=== PATIENT | male | born 2000 | race Caucasian/White ===

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

== ENCOUNTER 2019-03-14 19:43 | Emergency (ER) | payer BC ==
[~2019-03-14] VITALS: Ht 182.9 cm; Wt 118.0 kg
[~2019-03-14 19:43] MED LIST changes: +ANTIVERT PO
[2019-03-14 20:20] LABS: HEMATOCRIT 47.4 % (39.0-50.0); HEMOGLOBIN 16.6 g/dl (14.0-18.0); IMMATURE GRANULOCYTES 0.3 % (0.0-5.0); MEAN CELL VOLUME 83.5 fL CALC (80.0-100.0); MEAN CORPUSCULAR HGB 29.2 pG CALC (26.0-32.0); NEUT# 5.22 thou/uL (1.82-7.42); RED BLOOD COUNT 5.68 mill/uL (4.70-6.10); RED CELL DISTRI WIDTH 12.5 % (11.5-15.5)
[2019-03-14 20:21] LABS: URINE BILIRUBIN - DIPSTICK NEGATIVE (NEGATIVE); URINE BLOOD DIPSTICK NEGATIVE (NEGATIVE); URINE COLOR YELLOW; URINE GLUCOSE - DIPSTICK NEGATIVE (NEGATIVE); URINE KETONE NEGATIVE (NEGATIVE); URINE LEUK ESTERASE NEGATIVE (NEGATIVE); URINE NITRITE - DIPSTICK NEGATIVE (Negative); URINE PROTEIN - DIPSTICK 30 mg/dL (NEG-TRACE); URINE UROBILINOGEN - DIPSTICK 0.2 E.U./dL (0.2)
[2019-03-14 20:25] LABS: BARBITURATES NEGATIVE (NEGATIVE); COCAINE NEGATIVE (NEGATIVE); METHADONE NEGATIVE (NEGATIVE); OXCYCODONE NEGATIVE (NEGATIVE); TETRAHYDROCANNABIONOL NEGATIVE (NEGATIVE); TRICYLIC ANTIDEPRESSANTS NEGATIVE (NEGATIVE); URINE RBC 0-2 RBC/hpf (0-5); URINE WBC 0-2 WBC/hpf (0-5)
[2019-03-14 20:37] LABS: ALBUMIN 5.3 g/dL (3.2-5.0); ALKALINE PHOSPHATASE 80 u/l (38-126); ANION GAP 19 (6-22 (CALC)); BILIRUBIN, TOTAL 0.7 mg/dL (0.0-1.4); BUN 18 mg/dL (9-20); BUN/CREATININE RATIO 17 (12-20 (CALC)); CARBON DIOXIDE 23 mmol/l (22-30); CHLORIDE 106 mmol/l (95-108); GFR > 60 ML/MIN (>=60 (CALC)); GFR FOR AFR.AMER. > 60 ML/MIN (>=60 (CALC)); SGOT/AST 49 u/l (17-59); SODIUM 145 mmol/l (137-146); TOTAL PROTEIN 8.8 g/dL (6.3-8.2)
[2019-03-14 20:40] LABS: ETHYL ALCOHOL 177 mg/dl (0-30)
[2019-03-14 20:48] LABS: MYOGLOBIN 51 ng/mL (0 - 121)
[2019-03-15 07:23] VITALS: BP 120/68
== END 2019-03-15 07:43 | disposition home or self-care (01) | DRG 897 ==
LOC: ED 19:43
PROVIDERS: Emergency Medicine
PROC: 0T9B70Z Drainage of Bladder with Drainage Device, Via Natural or Artificial Opening (ICD-10-PCS; principal; 2019-03-15)
DX: F10.20 Alcohol dependence, uncomplicated (principal); E87.6 Hypokalemia; Y90.6 Blood alcohol level of 120-199 mg/100 ml; R41.82 Altered mental status, unspecified; F17.200 Nicotine dependence, unspecified, uncomplicated

== ENCOUNTER 2021-11-09 03:25 | Observation (INO) | payer BC ==
[~2021-11-09] VITALS: Ht 182.9 cm; Wt 108.0 kg
[2021-11-09 03:55] LABS: HEMATOCRIT 51.8 % (39.0-50.0); HEMOGLOBIN 17.3 g/dl (14.0-18.0); IMMATURE GRANULOCYTES 0.4 % (0.0-5.0); MEAN CELL VOLUME 86.3 fL CALC (80.0-100.0); MEAN CORPUSCULAR HGB 28.8 pG CALC (26.0-32.0); MEAN CORPUSCULAR HGB CONC 33.4 g/dL CAL (32.0-36.0); NEUT# 14.42 thou/uL (1.82-7.42)
[2021-11-09 04:06] LABS: ALBUMIN 5.4 g/dL (3.2-5.0); ALKALINE PHOSPHATASE 74 u/l (38-126); BILIRUBIN, TOTAL 0.6 mg/dL (0.0-1.4); BUN 11 mg/dL (9-20); BUN/CREATININE RATIO 11 (12-20 (CALC)); CHLORIDE 106 mmol/l (95-108); GFR > 60 ML/MIN (>=60 (CALC)); GFR FOR AFR.AMER. > 60 ML/MIN (>=60 (CALC)); SGOT/AST 39 u/l (17-59); SODIUM 147 mmol/l (137-146); TOTAL PROTEIN 9.2 g/dL (6.3-8.2)
[2021-11-09 04:15] LABS: ANION GAP 29 (6-22 (CALC)); CARBON DIOXIDE 16 mmol/l (22-30); POTASSIUM 3.5 mmol/l (3.5-5.1)
[2021-11-09 04:18] LABS: MYOGLOBIN 280 ng/mL (0 - 121)
[2021-11-09 04:34] LABS: URINE BILIRUBIN - DIPSTICK NEGATIVE (NEGATIVE); URINE BLOOD DIPSTICK SMALL (NEGATIVE); URINE COLOR YELLOW; URINE GLUCOSE - DIPSTICK NEGATIVE (NEGATIVE); URINE KETONE NEGATIVE (NEGATIVE); URINE PROTEIN - DIPSTICK 30 mg/dL (NEG-TRACE); URINE UROBILINOGEN - DIPSTICK 0.2 E.U./dL (0.2)
[2021-11-09 04:36] LABS: URINE LEUK ESTERASE NEGATIVE (NEGATIVE); URINE NITRITE - DIPSTICK NEGATIVE (Negative)
[2021-11-09 04:42] LABS: URINE EPITHELIAL CELLS MODERATE EPI/hpf (0-FEW)
[2021-11-09 04:43] LABS: URINE BACTERIA FEW hpf; URINE MUCUS MODERATE hpf (NONE-FEW)
--- NOTE | 2021-11-09 07:15 | NUR ---
REPORT RECEIVED FROM KENDY CARDENAS. CARE ASSUMED.
--- NOTE | 2021-11-09 07:30 | NUR ---
PATIENT YELLING AND CURSING OUT AND NOT FOLLOWING COMMANDS. PATIENT GETTING OUT OF BED UNSAFE.
--- NOTE | 2021-11-09 07:45 | NUR ---
PATIENT AGAIN YELLING AND CURSING ALOUD.
--- NOTE | 2021-11-09 08:00 | NUR ---
PATIENT URINATED IN BED. LINENS CHANGED. PATIENT CURSING ALOUD IN ROOM AND PULLING OFF MONITORS. PATIENT NOT FOLLOWING DIRECTIONS. NOTIFIED Blair DUNN APRN. SET UP PATIENT FOR AM MEAL. PATIENT REFUSING TO EAT MEAL
--- NOTE | 2021-11-09 09:00 | NUR ---
PATIENT CONTINUES TO AMBULATE AROUND ROOM AND NOT FOLLOW INSTRUCTIONS. SITTER OUTSIDE OF ROOM
--- NOTE | 2021-11-09 09:56 | NUR ---
REPORT RECVD FROM RONALD VALDES
--- NOTE | 2021-11-09 10:08 | NUR ---
PT SITTING ON EDGE OF BED, SITTER PRESENT. PT STABLE.
--- NOTE | 2021-11-09 10:46 | NUR ---
CALLED TO GIVE REPORT TO MED/SURG-RN UNAVAILABLE. PT AWARE OF ADMISSION.
--- NOTE | 2021-11-09 11:29 | NUR ---
report called to
--- NOTE | 2021-11-09 11:34 | NUR ---
PT TAKEN TO MED/SURG VIA WHEELCHAIR, TELE IN PLACE ALL BELONGINGS AND PAPERWORK SENT WITH.
[2021-11-09 11:45] VITALS: BP 170/77
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
--- NOTE | 2021-11-09 15:55 | NUR ---
PT TOOK A NAP IN THE CHAIR AT BEDSIDE. UPON WAKING HE IS SEEN ALERT AND ORIENTED X 3, NO CONFUSION OR AGGRESSION. SITTER REMAINS AT BEDSIDE.
[2021-11-09 16:48] LABS: HEMATOCRIT 49.2 % (39.0-50.0); HEMOGLOBIN 16.6 g/dl (14.0-18.0); IMMATURE GRANULOCYTES 0.2 % (0.0-5.0); MEAN CELL VOLUME 86.3 fL CALC (80.0-100.0); MEAN CORPUSCULAR HGB 29.1 pG CALC (26.0-32.0); MEAN CORPUSCULAR HGB CONC 33.7 g/dL CAL (32.0-36.0); NEUT# 10.94 thou/uL (1.82-7.42); RED BLOOD COUNT 5.7 mill/uL (4.70-6.10); RED CELL DISTRI WIDTH 13.4 % (11.5-15.5)
[2021-11-09] MEDS ORDERED: DOXYCYCLINE100 MG PO (17:07)
--- NOTE | 2021-11-09 17:47 | NUR ---
PT HAS BEEN DISCHARGED TO HOME. BLOOD WAS DRAWN TO RECHECK ETOH LEVEL AND WBCs, BOTH IMPROVED. PT VERBALIZED UNDERSTANDING OF DC INSTRUCTIONS, AMBULATED TO LOBBY WITH STEADY GAIT.
== END 2021-11-09 17:45 | disposition home or self-care (01) | DRG 897 ==
LOC: ED 03:25 → MS2 07:40 → ED-I 07:40 → MS2 10:43
PROVIDERS: Emergency Medicine; Nurse Practitioner; ADMIT Internal Medicine; ATTEND Internal Medicine
DX: F10.129 Alcohol abuse with intoxication, unspecified (principal); D72.829 Elevated white blood cell count, unspecified; E87.2 Acidosis; J40 Bronchitis, not specified as acute or chronic; I10 Essential (primary) hypertension; E78.5 Hyperlipidemia, unspecified; F17.200 Nicotine dependence, unspecified, uncomplicated; Y90.8 Blood alcohol level of 240 mg/100 ml or more; Z86.69 Personal history of other diseases of the nervous system and sense organs; Z98.890 Other specified postprocedural states; Z20.822 Contact with and (suspected) exposure to COVID-19
CPT/HCPCS: G0378; J1956; J2060

== ENCOUNTER 2022-08-13 11:23 | Emergency (ER) | payer BC ==
[~2022-08-13] VITALS: Ht 182.9 cm; Wt 90.1 kg
[~2022-08-13 11:23] MED LIST changes: +DOXYCYCLINE100 MG PO
[2022-08-13] MEDS ORDERED: PREDNISONE50 MG PO (13:26)
[2022-08-13] MEDS ORDERED: AMOX/K CLAV875 M1 PO (13:26)
[2022-08-13 13:35] VITALS: BP 133/78
== END 2022-08-13 13:42 | disposition home or self-care (01) | DRG 159 ==
LOC: ED 11:23
DX: K12.2 Cellulitis and abscess of mouth (principal); B96.20 Unspecified Escherichia coli [E. coli] as the cause of diseases classified elsewhere